=== PATIENT | female | born 1955 | race Caucasian/White ===

== ENCOUNTER → 2023-11-25 09:53 | Outpatient (REF) | payer MEDICARE, OTHER, SELFPAY | LOC: WDC 09:53 | PROVIDERS: ATTENDING PHYSICIAN Obstetrics & Gynecology; FAMILY PHYSICIAN Family Medicine | DX: Z12.31 Encounter for screening mammogram for malignant neoplasm of breast (principal) | CPT/HCPCS: 77063; 77067 ==

== ENCOUNTER → 2024-01-12 06:21 | Day surgery (SDC) | payer MEDICARE, OTHER, SELFPAY | LOC: GI 06:21 | PROVIDERS: ATTENDING PHYSICIAN Specialist | DX: Z12.11 Encounter for screening for malignant neoplasm of colon (principal); K57.30 Diverticulosis of large intestine without perforation or abscess without bleeding; Z98.0 Intestinal bypass and anastomosis status | CPT/HCPCS: G0121 ==

== ENCOUNTER → 2024-02-21 06:25 | Day surgery (SDC) | payer MEDICARE, OTHER, SELFPAY | LOC: GI 06:25 | PROVIDERS: ATTENDING PHYSICIAN Specialist | DX: K31.7 Polyp of stomach and duodenum (principal) | CPT/HCPCS: 43251; 43239; 88305 ==

== ENCOUNTER → 2024-04-10 07:33 | Outpatient (REF) | payer MEDICARE, OTHER, SELFPAY | LOC: RAD 07:33 | PROVIDERS: ATTENDING PHYSICIAN Family Medicine | DX: M54.50 Low back pain, unspecified (principal) | CPT/HCPCS: 72110 ==

== ENCOUNTER → 2024-12-07 09:18 | Outpatient (REF) | payer MEDICARE, OTHER, SELFPAY | LOC: WDC 09:18 | PROVIDERS: ATTENDING PHYSICIAN Family Medicine | DX: Z12.31 Encounter for screening mammogram for malignant neoplasm of breast (principal); Z12.39 Encounter for other screening for malignant neoplasm of breast | CPT/HCPCS: 77063; 77067 ==